=== PATIENT | male | born 1975 | race Caucasian/White ===

== ENCOUNTER 2025-03-05 08:37 | Outpatient (OUT) | payer OTHER, SELFPAY ==
--- NOTE | 2025-03-05 08:50 | NM_ITS ---
Patient Name: GISELA FRY MR#: [id number] : 1975 Exam Date: 03/05/2025 Ordering Doctor: DR TALIA THOMAS M.D. RADIOLOGY REPORT PROCEDURE: NM HARSHA PERF SPECT REST STR COMPARISON: None. INDICATIONS: CHEST PAIN TECHNIQUE: Exam Description: Stress/Rest two day protocol gated SPECT Rest Imagin.9 mCi Tc-99m Cardiolite IV on 03/06/2025 Stress Imaging 25.2 mCi Tc-99m Cardiolite IV on 03/05/2025 Exercise Protocol: Holland Heart Rate (bpm): Rest: 74 Max: 162 PMHR: 95 Blood Pressure: Rest: 142/98 Max: 180/94 Exercise Time: Minutes: 7 Seconds: 22 Stage Reached: Stage: 3 Mets 10.1 Symptoms: Rest and peak stress ECG findings were pending and the EKG portion of the study was pending per attending physician [facility] . For more details please see separate cardiac stress test report. FINDINGS: QUALITY OF STUDY: Good PERFUSION DEFECT: None LOCATION: SIZE: SEVERITY: TYPE: WALL MOTION: Normal LV SIZE: LVEDV 107 mL. TID / TCD: 0.9 LVEF: Calculated EF 60%. SUMMARY: Normal myocardial perfusion imaging study CONCLUSION: Normal nuclear myocardial perfusion stress test without evidence of ischemia or infarction Normal left ventricle systolic function, ejection fraction 60% No transient ischemic dilatation, TID score 0.9 EKG portion of stress test is reported separately Dictated by: Taryn Pugh MD on 03/09/2025 at 18:32 Approved by: Taryn Pugh MD on 03/09/2025 at 18:35
--- NOTE | 2025-03-05 09:28 | PC.NURSE ---
Nursing Note Cardiac Stress Test Reviewed: Medication, allergies and patient history reviewed. Stress Test: [x ] Patient tolerated stress test well. [ ] Patient unable to tolerate walking on treadmill. Switched to Lexiscan stress test. [x ] No chest pain noted per patient [ ] Chest pain that resolved prior to leaving stress lab. [ ] No dyspnea noted. [x ] Dyspnea that resolved prior to leaving stress lab. [x ] Patient left stress lab asymptomatic and hemodynamically stable. [ ] Patient taken to the Emergency Room due to non-resolving symptoms following stress test. [x ] Patient achieved target heart rate. [ ] Patient unable to achieve target heart rate. [ ] Aminophylline administered as reversal agent to Lexiscan (Regadenoson). [ ] Nitro administered. Nursing Comments:
--- NOTE | 2025-03-05 12:43 | PM.STRESS ---
Stress Test Stress Test Requesting physician: TALIA THOMAS Procedure: Treadmill nuclear stress test General Information: Reason for Stress Test: [Chest pain] Cardiac History and Risk Factors: [No risk factors] Resting 12 - Lead Electrocardiogram: Resting twelve-lead EKG showed normal sinus rhythm, heart rate 77 bpm, normal EKG. Resting blood pressure 142/98 mmHg The patient was exercised according to standard Holland protocol and he was able to finish 7 minutes and 22 seconds consistent with stage III achieving max METS of 10.8 and max heart rate 162 bpm which represents 95% of age predicted maximum heart rate, peak blood pressure 180/94 mmHg Exercise was terminated secondary of achievement of target heart rate. Patient was short of breath at peak exercise. Patient did not experience any chest, neck, jaw, or arm discomfort throughout the test Patient was monitored for 6 minutes into recovery phase with heart rate back to 98 bpm and blood pressure to 148/86 mmHg EKG during exercise, at peak exercise, and during recovery phase did not show any significant T or ST changes, rare PVCs were noted, mostly isolated with 1 couplet Stress Test: Protocol: [Close] Exercise Capacity: [Good] Blood Pressure Response: [Normal] Rhythm: [Rare PVCs, isolated with 1 couplet] ST - Response: [No ST changes] Patient Response: [Normal] Interpretation: Maximal treadmill stress test Appropriate heart rate and blood pressure response to exercise Good exercise tolerance This Stress test is negative for exercise-induced ischemic symptoms, EKG changes, or arrhythmias Nuclear myocardial perfusion stress images result is reported separately Angela Pugh MD, FACC
== END 2025-03-05 08:38 | disposition home or self-care (01) ==
PROVIDERS: PCP Family Medicine; Visit Provider Family Medicine
DX: R05.1 Acute cough (principal); R07.9 Chest pain, unspecified; M79.89 Other specified soft tissue disorders
CPT/HCPCS: 78452; 93017; A9500